=== PATIENT | male | born 1960 | race Caucasian/White ===

== ENCOUNTER 2020-05-13 12:19 | Emergency (ER) | payer BC, SELFPAY ==
--- NOTE | ~2020-05-13 | US_ITS ---
EXAMINATION: US venous doppler [facility] DATE: 05/13/2020 13:15 INDICATION: Left lower limb swelling TECHNIQUE: Grayscale ultrasound images without and with compression and Doppler ultrasound images of the left lower extremity veins were obtained. COMPARISON: None. FINDINGS: Is extensive noncompressible deep venous thrombosis in the left femoral, popliteal, gastrocnemius and paired posterior tibial and peroneal veins. Visualized portions of left common femoral vein and grea ter saphenous vein outflow are patent. IMPRESSION: 1. Extensive deep venous thrombosis throughout the left lower limb including both above and below th e knee. Reviewed, dictated and finalized at location A. IMPRESSION: 1. Extensive deep venous thrombosis throughout the left lower limb including b oth above and below the knee.
[2020-05-13 12:42] VITALS: BP 136/87; PULSE 96; RESP 17; TEMP 36.3; O2SAT 100
--- NOTE | 2020-05-13 12:57 | ED.LOWEXIN ---
HPI - Extremity Injury (Lower) General Chief Complaint: Extremity Injury, Lower Stated Complaint: left calf swelling Time Seen by Provider: 05/13/20 12:39 Source: patient Mode of arrival: ambulatory Limitations: no limitations History of Present Illness HPI Narrative: This patient is a 59 year old male who presents for evaluation of left calf swelling and pain. He states 4 months ago he had a left knee surgery and he states he has not been very active. Last night he developed left mid calf pain. This morning he sent a picture to his daughter and his left leg appeared swollen. He states his pain has resolved now after taking 500 mg tylenol. He has not history of DVT or PE. He denies chest pain or fever. He states he has been having sob with cutting his yard over the past 2 months that he thinks is due to being out of shape. Related Data Home Medications Medication Instructions Recorded Confirmed Cholestyramine Light 05/13/20 rosuvastatin mg 05/13/20 Allergies Allergy/AdvReac Type Severity Reaction Status Date / Time No Known Allergies Allergy Verified 05/13/20 13:04 Review of Systems Review of Systems: All systems reviewed & are unremarkable except as noted in HPI and below Cardiovascular: Cardiovascular: Denies chest pain Respiratory: Respiratory: Denies cough and Reports dyspnea Musculoskeletal: Musculoskeletal: Reports muscle cramps (left calf) Neurologic: Denies focal weakness, Denies numbness and Denies weakness PMFSH Past Medical History Medical History (Updated 05/13/20 @ 14:50 by Izabela Emery MD) Hyperlipidemia Surgical History Surgical History (Updated 05/13/20 @ 12:58 by Izabela Emery MD) H/O rhinoplasty History of uvulopalatopharyngoplasty Hx of cholecystectomy Family History Family History (Updated 05/13/20 @ 12:59 by Izabela Emery MD) Sibling Malignant hyperthermia due to anesthesia Social History Social History (Updated 05/13/20 @ 12:58 by Izabela Emery MD) Smoking status: Never smoker Gender identity (if verbalized by the patient): Male Exam Narrative: Exam Narrative: GENERAL: Well-appearing, well-nourished, and in no acute distress. HEAD: Normocephalic, atraumatic EYES: PERRLA and EOMI, conjunctiva clear without discharge THROAT:Mucous membranes moist, NECK: Supple, without lymphadenopathy or mass RESPIRATORY: No respiratory distress, Airway patent, Respirations non-labored, Clear to auscultation without rales, rhonchi or wheeze HEART: Regular rate and rhythm. No murmur heard. Normal peripheral pulses. ABDOMEN: Soft, nontender, nondistended, normal active bowel sounds. No masses. No rebound or guarding, No organomegaly. EXTREMITIES: normal strength with full range of motion. left knee with healed knee incision, mild increased swelling to left leg SKIN: Warm, dry, normal color without rash NEURO: Alert and oriented x3. CN 2-12 grossly intact. No focal deficits. PSYCH: Normal mood and affect. Course Reevaluation(s) Reevaluation #1: I discussed with patient that he has left DVT. His vitals and labs are stable. He has no signs of respiratory distress or cardiac strain. I have discussed that there is a possibility he has had PE but given that he is stable , the treatment is the same. He has been given a dose of eliquis. He has been given return precautions and his daughter is at bedside. I spoke with RADIO PROGRAM DIRECTOR for Dr. Francisco Almonte, Amador Faustin over the phone.He agrees to see patient and follow up next week . Date: 05/13/20 Time: 14:41 Vital Signs Vital signs: Vital Signs Temperature 97.4 F L 05/13/20 12:42 Pulse Rate 96 05/13/20 12:42 Respiratory Rate 17 05/13/20 12:42 Blood Pressure 136/87 05/13/20 12:42 Pulse Oximetry 100 05/13/20 12:42 Temperature 97.4 F L 05/13/20 12:42 Pulse Rate 80 05/13/20 14:33 Respiratory Rate 16 05/13/20 14:33 Blood Pressure 143/81 H 05/13/20 14:33 Pulse Oxime
--- NOTE | 2020-05-13 13:42 | ECG_ITS ---
Measurements Intervals [place] Rate: 78 P: 25 MS: 149 QRS: -19 QRSD: 91 T: 34 QT: 357 QTc: 407 Interpretive Statements SINUS RHYTHM DELAYED PRECORDIAL R/S TRANSITION BASELINE ARTIFACT- I, II, III, AVR BORDERLINE ECG Electronically Signed On 05-13-2020 14:03:15 CDT by Naman Solano D.O.
[2020-05-13 13:44] LABS: Anion Gap 9 mmol/L (8-16); Blood Urea Nitrogen 17 mg/dL (9-20); Calcium 8.8 mg/dL (8.4-10.2); Carbon Dioxide 24 mmol/L (22-30); Chloride 103 mmol/L (98-107); Creatine Kinase 89 U/L (55-170); Estimated CRCL calculation 83 ml/min; Estimated Glomerular Filt Rate > 60; Glucose 113 mg/dL (75-110); Potassium 4.2 mmol/L (3.4-5.0); Sodium 136 mmol/L (137-145)
[2020-05-13 13:45] LABS: Prothrombin Time 12.8 Seconds (11.1-14.7)
[2020-05-13 13:46] LABS: Partial Thromboplastin Time 24.3 SECONDS (22.3-36.8)
[2020-05-13 13:47] LABS: Basophils Absolute Auto 0.1 K/mm3 (0.0-0.1); Basophils Percent Auto 0.8 % (0.2-1.2); Eosinophils Absolute Auto 0.2 K/mm3 (0-0.3); Hematocrit 46.7 % (42.0-52.0); Hemoglobin 15.6 g/dL (14.0-18.0); Immature Granulocyte Absolute 0.03 K/mm3 (0.00-0.031); Immature Granulocyte Percent A 0.4 % (0-0.5); Lymphocytes Absolute Auto 1.21 K/mm3 (0.9-3.2); Lymphocytes Percent Auto 16.3 % (18.3-44.2); Mean Corpuscular HGB Conc 33.4 g/dl (32-36); Mean Corpuscular Hemoglobin 28.4 pg (26-34); Mean Corpuscular Volume 85.1 fl (80-100); Monocytes Absolute Auto 0.8 K/mm3 (0.1-0.6); Monocytes Percent Auto 10.8 % (2.6-8.5); Neutrophils Absolute Auto 5.1 K/mm3 (1.3-6.7); Neutrophils Percent Auto 68.7 % (45.5-73.1); Platelet Count Result 184 k/mm3 (150-375); Red Blood Count 5.49 M/mm3 (4.6-6.20); Red Cell Distribution Width 13.2 % (11.5-14.5); White Blood Count 7.4 K/mm3 (4.5-10.0)
[2020-05-13 14:22] LABS: NT Pro B Type Natriuretic Pept 30 PG/ML (5-100); Troponin I < 0.012 ng/mL (0.000-0.034)
[2020-05-13 14:33] VITALS: BP 143/81; PULSE 80; RESP 16; O2SAT 96
[2020-05-13] MEDS: APIXABAN 5 MG TABLET 10 MG PO (14:34)
== END 2020-05-13 15:00 | disposition home or self-care (01) ==
PROVIDERS: Emergency Provider General Practice; PCP Internal Medicine
DX: I82.492 Acute embolism and thrombosis of other specified deep vein of left lower extremity (principal); E78.5 Hyperlipidemia, unspecified
CPT/HCPCS: 36415; 80048; 82550; 83880; 84484; 85025; 85610; 85730; 93005; 93971; 99284; A9270

== ENCOUNTER 2020-05-20 17:13 | Emergency (ER) | payer BC, SELFPAY ==
[2020-05-20] VITALS (8 sets, daily range): BP systolic 149–161; BP diastolic 73–78; PULSE 67–87; RESP 13–20; O2SAT 92–99
--- NOTE | 2020-05-20 17:52 | ECG_ITS ---
Measurements Intervals [place] Rate: 79 P: 16 MN: 142 QRS: -10 QRSD: 89 T: 37 QT: 363 QTc: 417 Interpretive Statements SINUS RHYTHM BASELINE ARTIFACT- I, II, III, AVL, V2-V5 NORMAL ECG Electronically Signed On 05-20-2020 19:43:36 CDT by Naman Solano D.O.
[2020-05-20 18:06] LABS: Basophils Percent Auto 0.6 % (0.2-1.2); Eosinophils Absolute Auto 0.2 K/mm3 (0-0.3); Eosinophils Percent Auto 3.4 % (0-4.4); Hemoglobin 15.3 g/dL (14.0-18.0); Immature Granulocyte Absolute 0.03 K/mm3 (0.00-0.031); Immature Granulocyte Percent A 0.4 % (0-0.5); Lymphocytes Absolute Auto 2.03 K/mm3 (0.9-3.2); Mean Corpuscular Hemoglobin 28.5 pg (26-34); Mean Corpuscular Volume 83.8 fl (80-100); Mean Platelet Volume 9.1 fl (7.4-10.4); Monocytes Absolute Auto 0.6 K/mm3 (0.1-0.6); Monocytes Percent Auto 8.7 % (2.6-8.5); Neutrophils Absolute Auto 4.1 K/mm3 (1.3-6.7); Neutrophils Percent Auto 57.9 % (45.5-73.1); Platelet Count Result 294 k/mm3 (150-375); Red Blood Count 5.37 M/mm3 (4.6-6.20); Red Cell Distribution Width 13.2 % (11.5-14.5)
[2020-05-20 18:17] LABS: Anion Gap 12 mmol/L (8-16); Blood Urea Nitrogen 20 mg/dL (9-20); Carbon Dioxide 23 mmol/L (22-30); Chloride 103 mmol/L (98-107); Estimated CRCL calculation 83 ml/min; Estimated Glomerular Filt Rate > 60; Glucose 158 mg/dL (75-110); INR 1.2; Partial Thromboplastin Time 28.1 SECONDS (22.3-36.8); Potassium 3.6 mmol/L (3.4-5.0); Sodium 138 mmol/L (137-145)
[2020-05-20 18:30] LABS: NT Pro B Type Natriuretic Pept 70 PG/ML (5-100); Troponin I < 0.012 ng/mL (0.000-0.034)
--- NOTE | 2020-05-20 18:58 | ED.GENADULT ---
HPI - General Adult General Chief complaint: Shortness of Breath/Dyspnea Stated complaint: diagnosed with multiple PE, sent by pmd Time Seen by Provider: 05/20/20 18:40 Source: patient Mode of arrival: ambulatory Limitations: no limitations History of Present Illness HPI narrative: This patient is a 59 year old male who was diagnosed with left lower extremity DVT 1 week ago and he was sent to ER today for multiple pulmonary emboli. Patient was placed on Eliquis 1 week ago. He reports that his sob has improved since he started on Eliquis. He was evaluated by his PCP last week as a follow up and he had a CT PE performed today. He was found to have multiple pulmonary emboli so he was sent to ER. HE denies chest pain. He denies lightheadedness or dizziness. His leg pain has resolved. Related Data Home Medications Medication Instructions Recorded Confirmed Cholestyramine Light 05/13/20 rosuvastatin 20 mg PO 05/13/20 Allergies Allergy/AdvReac Type Severity Reaction Status Date / Time succinylcholine Allergy Other Verified 05/20/20 18:03 Review of Systems Review of Systems: All systems reviewed & are unremarkable except as noted in HPI and below Constitutional: Constitutional: Denies chills and Denies fever(s) Cardiovascular: Cardiovascular: Denies chest pain Respiratory: Respiratory: Denies cough and Reports dyspnea (improving) Gastrointestinal: Gastrointestinal: Denies abdominal pain, Denies diarrhea, Denies nausea and Denies vomiting Neurologic: Denies dizziness PMFSH Past Medical History Medical History Hyperlipidemia Surgical History Surgical History (Updated 05/20/20 @ 22:12 by Izabela Emery MD) H/O knee surgery H/O rhinoplasty History of uvulopalatopharyngoplasty Hx of cholecystectomy Family History Family History (Updated 05/13/20 @ 12:59 by Izabela Emery MD) Sibling Malignant hyperthermia due to anesthesia Social History Social History (Updated 05/13/20 @ 12:58 by Izabeal Emery MD) Smoking status: Never smoker Gender identity (if verbalized by the patient): Male Exam Narrative: Exam Narrative: GENERAL: Well-appearing, well-nourished, and in no acute distress. HEAD: Normocephalic, atraumatic EYES: PERRLA and EOMI, conjunctiva clear without discharge THROAT:Mucous membranes moist, Oropharynx normal without erythema, exudate, peritonsillar swelling or fluctuance NECK: Supple, without lymphadenopathy or mass RESPIRATORY: No respiratory distress, Airway patent, Respirations non-labored, Clear to auscultation without rales, rhonchi or wheeze HEART: Regular rate and rhythm. No murmur heard. Normal peripheral pulses. ABDOMEN: Soft, nontender, nondistended, normal active bowel sounds. No masses. No rebound or guarding, No organomegaly. EXTREMITIES: No edema, normal strength with full range of motion. SKIN: Warm, dry, normal color without rash NEURO: Alert and oriented x3. CN 2-12 grossly intact. No focal deficits. PSYCH: Normal mood and affect. Course Reevaluation(s) Reevaluation #1: I discussed with patient about admitting for observation for monitoring his pulse oximeter and an ECHO in the morning. . PAtient states he feels comfortable with discharge home as he likely had PE . He is not short of breath now. He has oxgyen saturation of 96% on room so he would like to go home. He was given return precautions. Date: 05/20/20 Time: 20:15 Vital Signs Vital signs: Vital Signs Pulse Rate 87 05/20/20 17:23 Respiratory Rate 20 05/20/20 17:23 Blood Pressure 161/73 H 05/20/20 17:23 Pulse Oximetry 96 05/20/20 17:23 Pulse Rate 81 05/20/20 20:31 Respiratory Rate 17 05/20/20 20:31 Blood Pressure 151/78 H 05/20/20 20:31 Pulse Oximetry 99 05/20/20 20:31 Medical Decision Making Medical Records Medical records narrative: CT chest performed at [facility]
--- NOTE | 2020-05-20 19:12 | PC.NURSE ---
report received at this time. pt resting on stretcher with family member at bedside. VS stable, RR even and unlabored, pt in NAD. pt remains hooked up to monitor. will continue to monitor pt for baseline status changes.
== END 2020-05-20 20:32 | disposition home or self-care (01) ==
PROVIDERS: Emergency Provider General Practice
DX: I26.94 Multiple subsegmental thrombotic pulmonary emboli without acute cor pulmonale (principal); E78.5 Hyperlipidemia, unspecified; Z86.718 Personal history of other venous thrombosis and embolism; Z79.01 Long term (current) use of anticoagulants
CPT/HCPCS: 36415; 80048; 83880; 84484; 85025; 85610; 85730; 93005; 99284

== ENCOUNTER 2025-07-10 12:59 | Outpatient (CLI) | payer MEDICARE, BC, SELFPAY ==
--- NOTE | ~2025-07-10 | XR_ITS ---
EXAMINATION: XR chest 2V, 07/10/2025 13:13 CDT HISTORY: Pulmonary nodule COMPARISON: No comparisons available. Technique: 2 views obtained. Findings: The lungs are clear, no effusion. No pneumothorax. Heart is normal size. Mediastinal and hilar contours are within normal limits. Bony thorax no acute abnormality. Impression: No acute cardiopulmonary abnormality. Reviewed, dictated and finalized at location P. Impression: No acute cardiopulmonary abnormality.
== END 2025-07-10 13:00 | disposition home or self-care (01) ==
PROVIDERS: PCP Nurse Practitioner; Visit Provider Nurse Practitioner
DX: R91.1 Solitary pulmonary nodule (principal)
CPT/HCPCS: 71046